=== PATIENT | female | born 2005 | race Two or more races ===

== ENCOUNTER 2023-04-24 07:38 | Day surgery (SDC) | payer BC, MEDICAID ==
[2023-04-18 11:39] LABS: Urine WBC None Seen /hpf (0 - 5)
[2023-04-18 11:54] LABS: Basophils # (auto) 0 10 ^3/uL (0-0.2); Basophils % (auto) 0.5 % (0.0-2.0); Eosinophils # (auto) 0.1 10 ^3/uL (0-0.8); Eosinophils % (auto) 1.6 % (0.0-7.0); Hematocrit 42.5 % (36.0-46.0); Hemoglobin 14.3 g/dL (12.2-16.2); Lymphocytes # (auto) 2.3 10 ^3/uL (0.4-5.4); Mean Corpuscular Hemoglobin 27.7 pg (28.0-32.0); Mean Corpuscular Hgb Conc. 33.6 g/dL (32.0-36.0); Mean Corpuscular Volume 82.3 fL (80.0-100.0); Monocytes # (auto) 0.7 10 ^3/uL (0-1.3); Monocytes % (auto) 8.1 % (0.0-12.0); Neutrophils # (auto) 5.3 10 ^3/uL (1.6-8.6); Neutrophils % (auto) 62.8 % (37.0-80.0); Nucleated Red Blood Cells % 0.1 %; Red Blood Cells 5.16 10^6/uL (4.0-5.20); Red Cell Distribution Width 13.7 % (11.8-14.3); White Blood Cell 8.4 10^3/uL (4.4-10.8)
[2023-04-18 12:02] LABS: Urine Bacteria NONE SEEN /hpf (None Seen); Urine Blood Negative /uL (Negative); Urine Clarity Clear (Clear); Urine Color Colorless (Yellow); Urine Protein, UAD Negative (Negative); Urine Specific Gravity 1.013 (1.001-1.035); Urine Urobilinogen Normal (Negative)
[2023-04-18 12:08] LABS: INR 1.01 (0.9-1.15); Partial Thromboplastin Time 31.9 SEC (24.5-34.5); Prothrombin Time 10.6 sec (9.3-11.8)
[2023-04-18 12:30] LABS: Alanine Aminotransferase 13 U/L (7-40); Alkaline Phosphatase 99 U/L (46-116); Anion Gap 5 (5-15); BUN/Creatinine Ratio 16.7 (10.0-20.0); Blood Urea Nitrogen 11 mg/dL (9-23); Calcium 9.2 mg/dL (8.5-10.1); Carbon Dioxide 27 mmol/L (20-30); Chloride 106 mmol/L (98-107); Glucose 90 mg/dL (74-106); Potassium 4.4 mmol/L (3.5-5.1); Sodium 138 mmol/L (136-145)
[2023-04-18 12:31] LABS: Albumin 4.6 g/dL (3.2-4.8); Aspartate Aminotransferase 19 U/L (13-40); Bilirubin, Total 1.1 mg/dL (0.2-1.0); Total Protein 7.8 g/dL (5.7-8.2)
[~2023-04-24] VITALS: Ht 160 cm; Wt 70.3 kg
[2023-04-24] MEDS ORDERED: BUPIVACAINE HCL 50 ML ONE (07:47)
[2023-04-24] MEDS ORDERED: EPINEPHrine HCL 1 MG/1 ML AMP ONE (07:47)
[2023-04-24] MEDS ORDERED: ceFAZolin 2 GM/D5W100ml 100 ML IV ONE (08:19)
[2023-04-24] MEDS ORDERED: fentaNYL CITRATE 100 MCG/2 ML VL ONE (08:20)
[2023-04-24] MEDS ORDERED: MIDAZOLAM HCL 2MG/2ML 2ml VIAL (1mg/ml) ONE (08:20)
[2023-04-24] MEDS ORDERED: DexAMETHasone SOD PHOS 10MG/1ML VIAL INJ ONE (08:21)
[2023-04-24] MEDS ORDERED: PROPOFOL 10 MG/ML 20 ML IV ONE (08:21)
[2023-04-24] MEDS ORDERED: ONDANSETRON HCL 4 MG/2 ML VIAL ONE (08:21)
[2023-04-24] MEDS ORDERED: MEPERIDINE HCL (25 MG/ML) 1ML VIAL ONE (08:21)
[2023-04-24] MEDS ORDERED: SODIUM CHLORIDE LOCK 10 ML ONE (08:21)
[2023-04-24] MEDS ORDERED: KETAMINE 50mg/ML 1ml syringe ONE (08:24)
[2023-04-24] MEDS ORDERED: HYDROmorphone HCL 2 MG/ML VL/or syr IV PRN (08:30)
[2023-04-24] MEDS ORDERED: MORPHINE SULFATE INJ 2 MG/ml SYRG IV PRN (08:30)
[2023-04-24] MEDS ORDERED: DexAMETHasone SOD PHOS 4 MG/1ML SDV INJ ONE (10:47)
[2023-04-24] MEDS ORDERED: LIDOCAINE 1% INJ PF 5ML AMP ONE (10:51)
[2023-04-24] MEDS ORDERED: BACITRACIN TOP OINT 1 UD PKG TOP ONE (10:52)
[2023-04-24 11:56] VITALS: O2SAT 94
[2023-04-24 11:57] VITALS: TEMP 97.4
[2023-04-24] MEDS ORDERED: HYDROmorphone HCL 2 MG/ML VL/or syr ONE (12:56)
[2023-04-24] MEDS: HYDROmorphone HCL 2 MG/ML VL/or syr IV PRN (13:00)
[2023-04-24 13:30] VITALS: BP 114/73; PULSE 76; RESP 13; O2SAT 98
[2023-04-24] MEDS: METOCLOPRAMIDE HCL 5MG/ml INJ 2ml VIAL IV PRN (13:48)
== END 2023-04-24 13:56 | disposition home or self-care (01) ==
LOC: SUR 07:38
PROVIDERS: ATTEND Orthopaedic Surgery Sports Medicine
DX: S83.511A Sprain of anterior cruciate ligament of right knee, initial encounter (principal); M24.661 Ankylosis, right knee; Z79.899 Other long term (current) drug therapy; Z98.890 Other specified postprocedural states; X58.XXXA Exposure to other specified factors, initial encounter; Y93.89 Activity, other specified; Y92.89 Other specified places as the place of occurrence of the external cause; Y99.8 Other external cause status
CPT/HCPCS: 29888; 36415; 73560; 76000; 80053; 81001; 81025; 85025; 85610; 85730; C1713; J0171; J1100; J1170; J2175; J2250; J2405; J2704; J2765; J3010; J3490